=== PATIENT | female | born 1960 | race Hispanic/Latino ===

== ENCOUNTER → 2024-01-17 | Outpatient (CLI) | payer OTHER ==
[~2024-01-17] MED LIST: IOHEXOL 350 MG/ML 100ML INFUS..BTL IV ONE; metoPROLOL tartRATE 1 MG/ML 5ML VIAL IV ONE
== END | disposition home or self-care (01) ==
LOC: RAH 08:28
PROVIDERS: ATTEND Internal Medicine Cardiovascular Disease
DX: I25.10 Atherosclerotic heart disease of native coronary artery without angina pectoris (principal); R07.9 Chest pain, unspecified; M47.815 Spondylosis without myelopathy or radiculopathy, thoracolumbar region
CPT/HCPCS: 75574; J3490; Q9967

== ENCOUNTER 2024-02-13 05:31 | Observation (INO) | payer OTHER ==
[2024-02-11 11:26] LABS: BASOPHILS # (AUTO) 0.02 K/uL (0.00-0.20); BASOPHILS % (AUTO) 0.4 % (0.0-5.0); EOSINOPHILS % (AUTO) 3.7 % (0.0-8.0); HEMATOCRIT 36.6 % (36-48); IMMATURE GRANULOCYTE ABSOLUTE 0.02 K/uL (0-1); LYMPHOCYTES # (AUTO) 1.2 K/uL (1.0-4.8); LYMPHOCYTES % (AUTO) 21.6 % (21.0-51.0); MEAN CORPUSCULAR HEMOGLOBIN 28.9 pg (27.0-33.0); MEAN CORPUSCULAR HGB CONC 33.9 g/dL (32.0-36.0); MEAN CORPUSCULAR VOLUME 85.3 fL (79-99); MONOCYTES # (AUTO) 0.2 K/uL (0.1-1.0); NEUTROPHILS # (AUTO) 3.8 K/uL (1.8-7.7); NEUTROPHILS % (AUTO) 69.9 % (40.0-77.0); PLATELET COUNT (AUTO) 195 K/uL (130-400); RED BLOOD CELL COUNT(AUTO) 4.29 MIL/uL (4.00-5.50); RED CELL DISTRIBUTION WIDTH 13.4 % (11.0-15.5); WHITE BLOOD COUNT (AUTO) 5.5 K/uL (4.8-10.8)
[2024-02-11 11:35] VITALS: BP_SYST 178; BP_SYST 192; BP_DIAS 71; BP_DIAS 92; PULSE 71; RESP 18; TEMP 97.3
[2024-02-11 11:49] LABS: CREATININE 1.1 mg/dL (0.5-1.0)
[2024-02-11 12:21] LABS: INR 0.95 (0.85-1.15); PROTHROMBIN TIME 10.3 SEC (9.6-11.6)
[2024-02-11 12:22] LABS: PARTIAL THROMBOPLASTIN TIME 29.2 SEC (26.3-35.5)
[2024-02-13] VITALS (24 sets, daily range): BP systolic 115–181; BP diastolic 53–95; PULSE 69–89; RESP 11–22; TEMP 97.5–98.7; O2SAT 96–97
[~2024-02-13] VITALS: Ht 165.1 cm; Wt 80.3 kg
[~2024-02-13 05:31] MED LIST changes: +ASPI-1197 PO; +ATOR20TA65 PO; +CARV3.12 PO; +DAPA10TA PO; +GLIP-162 PO; -IOHEXOL 350 MG/ML 100ML INFUS..BTL IV ONE; +LOSA50TA64 PO; +SEMA3TAB4 PO; -metoPROLOL tartRATE 1 MG/ML 5ML VIAL IV ONE
[2024-02-13] MEDS: 0.9%NACL 1000ML 1,000 ML IV ONE (06:42)
[2024-02-13] MEDS ORDERED: HEParin 10,000 UNIT/10ML (1,000 UNIT/ML) VIAL ONE (07:11)
[2024-02-13] MEDS ORDERED: LIDOCAINE HCL 400MG/20ML VIAL ONE ×2 (07:11→07:30)
[2024-02-13] MEDS ORDERED: IOHEXOL 350 MG/ML 100ML INFUS..BTL IV ONE (07:11)
[2024-02-13] MEDS ORDERED: NITROGLYCERIN 50MG VIAL ONE (07:12)
[2024-02-13] MEDS ORDERED: HEParin-NS 1,000 UNIT/500 ML 1,000 ML IV ONE (07:12)
[2024-02-13] MEDS ORDERED: FENTanyl CITRate PF 50 MCG/1 ML 2ML VIAL ONE (07:30)
[2024-02-13] MEDS ORDERED: BIVALIRUDIN 250 MG/VIAL IV ONE (07:31)
[2024-02-13] MEDS ORDERED: MIDAZOLAM HCL 1 MG/ML 2ML VIAL ONE (07:31)
[2024-02-13] MEDS ORDERED: cloPIDOgrel 300MG TAB ONE (08:42)
[2024-02-13] MEDS ORDERED: ASPIRIN 81MG CHEW TAB ONE (08:42)
[2024-02-13] MEDS ORDERED: DEXTROSE 50%-WATER 50 ML DISP.SYRIN IV PRN (09:00)
[2024-02-13] MEDS ORDERED: GLUCAGON 1MG KIT 1 MG ML IM PRN (09:00)
[2024-02-13] MEDS: 0.9%NACL 1000ML 1,000 ML IV SCH (09:00)
[2024-02-13] MEDS ORDERED: NITROGLYCERIN 0.4 MG SL TAB SL PRN (09:00)
[2024-02-13] MEDS ORDERED: metoPROLOL tartRATE 1 MG/ML 5ML VIAL IV PRN (09:00)
[2024-02-13] MEDS: hydrALAZine 20MG/ML VIAL IV PRN (09:58)
[2024-02-13] MEDS: INSULIN humuLIN R 100 UNIT/ML 3ML SQ SCH (11:30)
[2024-02-13] MEDS: atorVAStatin 20 MG TABLET PO SCH (21:05)
[2024-02-13] MEDS: carVEDIlol 3.125 MG TABLET PO SCH (21:05)
[2024-02-14 00:09] VITALS: BP 128/74; PULSE 91; RESP 16
[2024-02-14 03:05] VITALS: BP 105/65; PULSE 88; RESP 16; TEMP 98.6
[2024-02-14 04:00] LABS: BASOPHILS # (AUTO) 0.02 K/uL (0.00-0.20); BASOPHILS % (AUTO) 0.3 % (0.0-5.0); EOSINOPHILS # (AUTO) 0.22 K/uL (0.00-0.70); EOSINOPHILS % (AUTO) 3.6 % (0.0-8.0); HEMATOCRIT 33.3 % (36-48); IMMATURE GRANULOCYTE ABSOLUTE 0.02 K/uL (0-1); LYMPHOCYTES # (AUTO) 1.2 K/uL (1.0-4.8); LYMPHOCYTES % (AUTO) 18.9 % (21.0-51.0); MEAN CORPUSCULAR HEMOGLOBIN 28.8 pg (27.0-33.0); MEAN CORPUSCULAR HGB CONC 33.9 g/dL (32.0-36.0); MEAN CORPUSCULAR VOLUME 84.7 fL (79-99); MONOCYTES # (AUTO) 0.4 K/uL (0.1-1.0); MONOCYTES % (AUTO) 7.1 % (3.0-13.0); NEUTROPHILS # (AUTO) 4.2 K/uL (1.8-7.7); NEUTROPHILS % (AUTO) 69.8 % (40.0-77.0); PLATELET COUNT (AUTO) 180 K/uL (130-400); RED BLOOD CELL COUNT(AUTO) 3.93 MIL/uL (4.00-5.50); RED CELL DISTRIBUTION WIDTH 13.7 % (11.0-15.5); WHITE BLOOD COUNT (AUTO) 6.1 K/uL (4.8-10.8)
[2024-02-14 04:24] LABS: CREATININE 1.3 mg/dL (0.5-1.0); POTASSIUM 3.7 mmol/L (3.5-5.1)
[2024-02-14 04:41] LABS: HEMOGLOBIN A1C 6.7 % (4.0-6.0)
[2024-02-14 07:15] VITALS: O2SAT 97
[2024-02-14 08:28] VITALS: BP 124/73; PULSE 74; RESP 18; TEMP 98.6
[2024-02-14] MEDS: cloPIDOgrel 75MG TAB PO SCH (08:59)
[2024-02-14 09:00] VITALS: BP 120/56
[2024-02-14] MEDS: ASPIRIN 81MG CHEW TAB PO SCH (09:00)
[2024-02-14] MEDS: LoSARTan 50 MG TABLET PO SCH (09:00)
[2024-02-15] MEDS ORDERED: CLOP75TA32 PO (14:43)
== END 2024-02-14 11:30 | disposition home or self-care (01) ==
LOC: DAH 05:31 → DAHIP 05:32 → DAH 05:32 → 2DH 16:50
PROVIDERS: ADMIT Internal Medicine; ATTEND Internal Medicine
DX: I25.119 Atherosclerotic heart disease of native coronary artery with unspecified angina pectoris (principal); R94.39 Abnormal result of other cardiovascular function study; I10 Essential (primary) hypertension; E78.5 Hyperlipidemia, unspecified; E11.9 Type 2 diabetes mellitus without complications; Z95.5 Presence of coronary angioplasty implant and graft; Z79.4 Long term (current) use of insulin; Z86.2 Personal history of diseases of the blood and blood-forming organs and certain disorders involving the immune mechanism; Z79.899 Other long term (current) drug therapy
CPT/HCPCS: 80048 ×2; 85025 ×2; 85610; 85730; 36415 ×2; 71045; 93005; 92978; 93458; 96374; 96376; 96361; 82948 ×4; 83036; C1887; C1894 ×2; C1725; C1874 ×2; C1760; C1753; C1769; Q9965 ×2; G0378 ×20; J3010; J3490 ×3; J7030; J0360 ×3; J2250; J1644; J0583; Q9967; A4520; A4215; A4223 ×3; A4554; A4335; A4222; A4221; A4663; A4216 ×2; A4606; C9600; 96360; 99156; 99157